=== PATIENT | male | born 1945 | race Caucasian/White ===

== ENCOUNTER 2017-09-10 09:20 | Day surgery (SDC) | payer OTHER, BC ==
[2017-09-09 14:40] VITALS: BMI 32.5
[2017-09-10] MEDS ORDERED: LIDOCAINE HCL/PF 2% SDV 5ML VIAL ONE (10:34)
[2017-09-10] MEDS ORDERED: PROPOFOL 20 ML ONE ×3 (10:34)
[2017-09-10 10:45] VITALS: TEMP 97.5
[2017-09-10 11:37] VITALS: BP 110/60; PULSE 77
--- NOTE | 2017-09-13 09:22 | PATH ---
Surgical Pathology Report Patient Name: LORENZO GUZMAN [facility]. Rec. #: [id number] /Age/Gender: 1945 (Age: 72) / M Account: [id number] Location: [facility]-ENDOSCOPY Taken: 09/10/2017 Received: 09/10/2017 Reported: 09/13/2017 Physicians: Demetrius Taylor M.D. Specimen(s) Received BX SIGMOID COLON POLYP Clinical History Preoperative diagnosis: History of polyps, screening Postoperative diagnosis: Diverticulosis, colon polyp Final Diagnosis Colon, sigmoid, biopsy: hyperplastic polyp. Electronically Signed Warner Lo M.D. Gross Description Received in formalin, labeled "biopsy sigmoid colon polyp" are 2 pinzon, irregular portions of soft tissue measuring 0.1 and 0.6 cm. in greatest dimension. The specimens are submitted in toto in one cassette. /09/10/201709/10/2017
== END 2017-09-10 11:44 | disposition home or self-care (01) ==
LOC: JASU-ENDO 09:20
PROVIDERS: ATTEND Internal Medicine Gastroenterology
PROC: 0DBN8ZX Excision of Sigmoid Colon, Via Natural or Artificial Opening Endoscopic, Diagnostic (ICD-10-PCS; principal; 2017-09-10 10:00)
DX: Z12.11 Encounter for screening for malignant neoplasm of colon (principal); K57.30 Diverticulosis of large intestine without perforation or abscess without bleeding; K64.8 Other hemorrhoids; D12.5 Benign neoplasm of sigmoid colon; Z86.010 Personal history of colon polyps
CPT/HCPCS: 88305-TC

== ENCOUNTER 2021-08-01 12:09 | Emergency (ER) | payer OTHER, BC ==
[2021-08-01 12:25] VITALS: BP 155/82; PULSE 103; TEMP 98.5; BMI 30.9
[2021-08-01] MEDS ORDERED: DOXYCYCLINE HYCLATE 100 MG CAPSULE PO ONE (13:44)
[2021-08-01] MEDS ORDERED: DOXYCYCLINE HYCLATE 100 MG TABLET PO ONE (13:48)
[2021-08-01] MEDS ORDERED: DIPHTH,PERTUSS(ACELL),TET 0.5 ML DISP.SYRIN IM ONE ×2 (13:49→13:52)
== END 2021-08-01 14:04 | disposition home or self-care (01) ==
LOC: FER 12:09
PROC: 3E0234Z Introduction of Serum, Toxoid and Vaccine into Muscle, Percutaneous Approach (ICD-10-PCS; principal; 2021-08-01)
DX: S09.92XA Unspecified injury of nose, initial encounter (principal); W19.XXXA Unspecified fall, initial encounter; Y92.9 Unspecified place or not applicable
CPT/HCPCS: 70450-TC; 70486-TC; 90471; 90715; 99284-25

== ENCOUNTER 2021-10-19 09:40 | Emergency (ER) | payer OTHER, BC ==
[2021-10-19 09:50] VITALS: TEMP 98.3; BMI 30.9
[2021-10-19] MEDS ORDERED: BEBTELOVIMAB (EUA) 175 MG/2 ML VIAL IVPUSH ONE (09:58)
[2021-10-19 12:00] VITALS: BP 144/85; PULSE 79
== END 2021-10-19 12:01 | disposition home or self-care (01) ==
LOC: JER 09:40
DX: U07.1 COVID-19 (principal)
CPT/HCPCS: 99283-25; 99284-25